=== PATIENT | male | born 1945 | race Caucasian/White ===

== ENCOUNTER 2016-04-27 17:15 | Emergency (ER) | payer OTHER ==
[~2016-04-27] VITALS: Ht 175.3 cm; Wt 83.9 kg
[2016-04-27 17:54] VITALS: BP 107/62
--- NOTE | 2016-04-27 18:50 | NUR ---
PT AMBULATED TO BED 2 AT THIS TIME.
--- NOTE | 2016-04-27 18:51 | NUR ---
70M BIB C/O VOMITING X 4 EPISODES TODAY; ABDOMEN SOFT, NON-TENDER, ACTIVE BOWEL SOUNDS X4 QUADRANTS; PT C/O THROBBING HEADACHE TO RT SIDE OF HEAD, RADIATES TO RT BACK OF HEAD, 3/10 X TODAY; PT DENIES TRAUMA OR INJURY TO HEAD, OR BLURRY VISION AT THIS TIME; A&OX4, BL LUNG SOUNDS CLEAR, RR EVEN/UNLABORED, SKIN IS WARM/DRY/INTACT AT THIS TIME; STEADY GAIT; AT BEDSIDE; PT PLACED IN GOWN, RESTING IN BED W/ HOB ELEVATED AND IN LOWEST POSITION; POSITIONED FOR COMFORT; ER MD MADE AWARE OF STATUS. WILL CONTINUE TO MONITOR.
--- NOTE | 2016-04-27 19:18 | NUR ---
RECEIVED REPORT FROM ADE[facility]YO ESPINAL. PT STABLE, VSS. NOS S/S OF DISTRESS NOTED AT THIS TIME.
--- NOTE | 2016-04-27 19:29 | NUR ---
Dr. Jaimes evaluating patient at bedside.
[2016-04-27] MEDS ORDERED: ONDANSETRON 4 MG ODT PO ONE (19:40)
[2016-04-27 20:54] VITALS: BP 120/74
== END 2016-04-27 20:54 | disposition home or self-care (01) ==
LOC: MED 17:15
DX: B34.9 Viral infection, unspecified (principal)
CPT/HCPCS: 36415; 80053; 81001; 83690; 85025; 93005; 99285; S0119